=== PATIENT | male | born 1970 ===

== ENCOUNTER 2018-05-11 14:25 | Outpatient (CLI) | payer BC | END 2018-05-11 14:26 | disposition home or self-care (01) | LOC: C.PAT 14:25 | DX: Z01.818 Encounter for other preprocedural examination (principal) ==

== ENCOUNTER 2018-05-21 09:19 | Day surgery (SDC) | payer BC ==
[2018-05-11 14:49] VITALS: BMI 25.7
[2018-05-21] MEDS ORDERED: Bupivacaine 0.25% 20 ML INJ IJ ONE (11:30)
[2018-05-21] MEDS ORDERED: ceFAZolin 1 gm in NS 1 GM/100 ML BAG IVPB ONE ×2 (11:30→11:56)
[2018-05-21] MEDS ORDERED: Lidocaine/Epinephrine 1% 1:100000 10 ML IJ ONE (11:30)
[2018-05-21] MEDS ORDERED: Midazolam 2 MG/2 ML VIAL ONE (11:35)
[2018-05-21] MEDS ORDERED: Propofol 10 mg/ml Inj (20 ML) ONE (11:35)
[2018-05-21] MEDS ORDERED: Lidocaine Hydrochloride 5 ML INJ ONE (11:56)
[2018-05-21] MEDS ORDERED: HYDROmorphone 0.5 mg/0.5 ml ISec IVP PRN (13:26)
--- NOTE | 2018-05-21 13:28 | PCM.SURG1 ---
Surgeon's Initial Post Op Note - Surgeon's Notes Surgeon: MD Ruddy Trash [employer]or [employer] Driver: Tarik [id number] Pre-Operative Diagnosis: Left posterior neck mass Operative Findings: caseous cyst Post-Operative Diagnosis: Left posterior neck mass Operation Performed: Excsion of left posterior neck mass Specimen/Specimens Removed: Left posterior neck mass Estimated Blood Loss: EBL {In ML}: 5 Date of Surgery/Procedure: 05/21/18 Time of Surgery/Procedure: 13:28
[2018-05-21 13:55] VITALS: TEMP 97.1
[2018-05-21 14:36] VITALS: PULSE 81; RESP 15
[2018-05-21 15:01] VITALS: BP 121/69; O2SAT 98
--- NOTE | 2018-05-22 02:31 | OP ---
PROCEDURE DATE: 05/21/2018 PREOPERATIVE DIAGNOSES: 1. Posterior neck lipoma, possible sebaceous cyst. 2. Scar of the previous lipoma excision. POSTOPERATIVE DIAGNOSES: 1. Recurrent posterior neck large sebaceous cyst, approximately 5 x 4 cm size. 2. Scar of previous operation. OPERATIONS DONE: 1. Excision of a large sebaceous cyst of posterior neck, 5 x 4 cm size. 2. Excision of the redundant skin with old scar tissue, approximately 5 x 3 cm size. 3. Multi-layered complex closure of the wound, 5 x 4 cm size to prevent seroma and hematoma. ANESTHESIA: General anesthesia with LMA. ESTIMATED BLOOD LOSS: Around 20 mL. DRAINS: None. PATHOLOGY: The sebaceous cyst and the redundant skin with old scar was sent for the pathology. COMPLICATIONS: None. INTRAOPERATIVE FINDINGS: The patient had approximately 5 x 4 cm sebaceous cyst of posterior neck with scar of the old surgery, and it seems like the patient had previous cyst removal, not the lipoma excision and this one was a recurrent cyst. DESCRIPTION OF PROCEDURE: On intraoperative steps, this is a 48-year-old male who was initially diagnosed with lipoma of the posterior neck recurrent due to previous operation at the same place. The patient was consented for excision, bought to the OR, placed supine on the operating table. After induction of the anesthesia, the patient was placed in left lateral position. The posterior neck was prepped and draped in the usual sterile fashion. Local anesthesia was injected. Elliptical incision was made, and old scar was included. Upper and lower flaps were created. The patient was found to have a cyst instead of lipoma, and now the dissection was carried down deep upto the underlying fascia as well as the muscle. The cyst appeared to be extremely large, and the cyst was completely excised. Now, the patient had a redundant skin covering the cyst that was also excised. It was approximately 5 x 3 cm size. Now, the wound was irrigated. Hemostasis was achieved to prevent seroma as well as a hematoma in the space in the neck. The complex wound closure was done. Upper and lower flaps were sutured to the underlying muscle as well as the fascia, the deep subcu with a 2-0 Vicryl, superficial subcu with a 3-0 Vicryl, and skin with a 4-0 Monocryl. Dry sterile dressing was applied. The patient tolerated the procedure well. Count of instrument and gauze was correct. There was no apparent complication. The patient was reversed from the anesthesia in OR and sent to the postanesthesia care in stable condition. Eugene Fox MD
== END 2018-05-21 15:25 | disposition home or self-care (01) ==
LOC: C.SDS 09:19
PROVIDERS: ATTEND Surgery Surgical Critical Care
DX: L72.3 Sebaceous cyst (principal)
CPT/HCPCS: 11426; 12044; 82948; 88304; J0690; J2250; J2704; J3010